=== PATIENT | female | born 2000 | race Hispanic/Latino ===

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

== ENCOUNTER 2024-05-16 17:54 | Emergency (ER) | payer MEDICAID ==
[~2024-05-16] VITALS: Ht 149.9 cm; Wt 68.0 kg
[~2024-05-16 17:54] MED LIST: LEVE-43 PO
[2024-05-16 18:57] LABS: RAPID GROUP A STREP negative (NEGATIVE)
[2024-05-16 18:59] LABS: COVID19 (SARS ANTIGEN RAPID) PRESUMPTIVE NEGATIVE (NEGATIVE); INFLUENZA TYPE A Negative For Type A (NEGATIVE); INFLUENZA TYPE B Negative For Type B (NEGATIVE)
--- NOTE | 2024-05-16 19:11 | ERN ---
General Chief Complaint: Fever Stated Complaint: FEVER Time Seen by MD: 17:58 Time Seen by Midlevel: 17:58 Source: patient History of Present Illness Initial Comments 23-year-old female who presents to the emergency department with mother due to a fever onset today. Mother reports patient has been having allergies and runny nose and is supposed to follow up with spinner concrete pipe specialist. Patient complaining of headache but denies any abdominal pain, chest pain, difficulty breathing, sore throat, dysuria or further associated symptoms. PMHx autism Allergies: Coded Allergies: No Known Drug Allergies (Unverified Allergy, Unknown, 03/30/19) Home Meds Active Scripts Levetiracetam (Keppra) 500 Mg Tablet, 500 MG PO BID for seizures for 30 Days, #60 TAB 1 Refill Prov:ARGELIA HUIZAR MD 09/12/20 Past Medical History Past Medical History: Asthma, Seizure, Other Medical History Other: AUTISM, Past Surgical History: None Social History Social History: Negative Female( History) History: Not Applicable ROS Dictation Constitutional: Positive for fever Negative for chills, and weight loss Eyes: Negative for injury, pain,redness, and discharge ENT: Positive for rhinorrhea Negative for injury,pain or swelling Cardiovascular: Negative for chest pain, palpitations, and edema Respiratory: Negative for shortness of breath, cough, and wheezing, Abdomen/GI: Negative for abdominal pain, nausea, vomiting, diarrhea, and constipation Back: Negative for injury and pain : Negative for painful urination, bleeding or discharge MS/Extremity: Negative for injury and deformity Skin: Negative for rash, and discoloration Neuro: Positive for headache Negative for weakness, numbness, tingling, and seizure Psych: Negative for suicide ideation, homicidal ideation, and hallucinations Physical Exam Physical Exam Dictation General: awake, alert, no acute distress Head/Face: Normocephalic, atraumatic Eyes: normal conjunctiva ENT: oral cavity clear, TMs clear, oral mucosa moist Neck: Supple, normal range of motion Cardiovascular: RRR, normal S1/S2 Respiratory: CTAB, no respiratory distress, no rales or wheezes Abdomen: Soft, non-tender, non-distended, no guarding or rebound. Skin: Warm, dry, normal turgor, no rash MS/Extremity: Pulses equal, no cyanosis, neurovascular intact, FROM Neuro: COAx4, GCS 15, no neurological deficits, normal gait Results Laboratory and Microbiology Lab and Micro Result Laboratory Tests Test 05/16/24 18:13 05/16/24 19:15 Influenza Type A Antigen Negative For Type A Influenza Type B Antigen Negative For Type B SARS-CoV-2 Antigen (Rapid) PRESUMPTIVE NEGATIVE Group A Streptococcus Rapid negative (NEGATIVE) Urine Color LIGHT-YELLOW (YELLOW) Urine Appearance CLEAR (CLEAR) Urine pH 6.5 (5.0-8.0) Urine Specific [place] 1.022 (1.001-1.031) Urine Protein NEGATIVE mg/dL (NEGATIVE) Urine Glucose (UA) NEGATIVE mg/dL (NEGATIVE) Urine Ketones NEGATIVE mg/dL (NEGATIVE) Urine Occult Blood MODERATE (NEGATIVE) H Urine Nitrate NEGATIVE (NEGATIVE) Urine Bilirubin NEGATIVE mg/dL (NEGATIVE) Urine Urobilinogen 0.2 mg/dL (0.2-1.0) Urine Leukocyte Esterase NEGATIVE Fer/uL Urine RBC 11-25 /HPF (0-1) H Urine WBC 0-1 /HPF (0-1) Urine Squamous Epithelial Cells RARE /HPF (0-2) Urine Bacteria None /HPF (None Seen) Labs Reviewed?: Yes MDM MDM: Differential diagnosis: Influenza, UTI, viral illness Rationale: 23-year-old female who presents to the emergency department with mother due to a fever onset today. Mother reports patient has been having allergies and runny nose and is supposed to follow up with spinner concrete pipe specialist. Patient complaining of headache but denies any abdominal pain, chest pain, difficulty breathing, sore throat, dysuria or further associated symptoms. PMHx autism Per physical examination patient is in no acute distress, nonlabored breathing, no crackles or wheezing auscultated, abdomen is soft nontender. Flu, strep, SARs negative. UA negative for urinary tract infection. Mother was educated on findings and diagnosis. Advised to follow up with PCP. Return to the emergency department if any worsening symptoms. Mother verbalized understanding. Patient stable for discharge. There are no social concerns with this patient. I independently interpreted the test that were performed, results were reviewed by me and considered findings on radiology if ordered. Medical management and examination interpretation discussions were had by me with other qualified healthcare professionals as indicated for the patient's c are. ED Course Orders Procedure Category Date Status Time Covid19 (Sars Antigen LAB 2/25/25 Complete Rapid) 18:27 Influenza Type A & B, LAB 05/16/24 Complete Rapid 18:27 Rapid (Group A Strep) LAB 05/16/24 Complete 18:27 Urinalysis LAB 05/16/24 Complete W/Microscopic 18:54 Vital Signs Date Time Temp Pulse Resp B/P (MAP) Pulse Ox O2 Delivery O2 Flow Rate FiO2 05/16/24 19:43 98.8 92 18 128/82 100 Room Air* 0 21 05/16/24 18:13 99.9 108 20 130/86 100 Room Air 0 DX & DISP Disposition: Discharge Departure Impression: Primary Impression: Febrile illness Additional Impression: Viral illness Condition: Stable Additional Instructions: Discharge home. Rest. Follow up with primary care DrAbhinav in 24 hours. Return to the ER for any acute changes or worsening symptoms. If any medications were prescribed take as directed. Okay to continue home medications unless otherwise discussed during your visit in the emergency room today. Patient was also advised to follow-up with primary care physician in 1 to 2 days for continued monitoring. Referrals: WINDY BAKER MD (PCP) I performed the substantive portion of the visit. I have reviewed and personally made and approve the management plan that is documented in the notes by myself or the DOMINIQUE. I acknowledge full responsibility for the patient's man agement plan. DEMOND HANKS May 16, 2024 19:11
[2024-05-16 19:43] VITALS: BP 128/82; PULSE 92; RESP 18; TEMP 98.8; O2SAT 100
[2024-05-16 19:44] LABS: APPEARANCE,URINE CLEAR (CLEAR); BILIRUBIN,URINE NEGATIVE (NEGATIVE); COLOR,URINE LIGHT-YELLOW (YELLOW); GLUCOSE, URINE (UA) NEGATIVE (NEGATIVE); KETONES,URINE NEGATIVE (NEGATIVE); LEUKOCYTE ESTERASE ,URINE NEGATIVE Leu/uL (NEGATIVE); MUCUS,URINE RARE LPF (None Seen); NITRATE,URINE NEGATIVE (NEGATIVE); OCCULT BLOOD,URINE MODERATE (NEGATIVE); PH,URINE 6.5 (5.0-8.0); PROTEIN,URINE NEGATIVE (NEGATIVE); SQUAMOUS EPITHELIAL CELL,UR RARE /HPF (0-2); UROBILINOGEN,URINE 0.2 mg/dL (0.2-1.0); WBC,URINE 0-1 /HPF (0-1)
[2024-05-16] MEDS ORDERED: acetaMINOPHEN 500 MG TABLET PO ONE (20:30)
[2024-05-16] MEDS: acetaMINOPHEN 325 MG TAB PO ONE (21:04)
== END 2024-05-16 21:06 | disposition home or self-care (01) ==
LOC: EDH 17:54
DX: R50.9 Fever, unspecified (principal); B34.9 Viral infection, unspecified; F84.0 Autistic disorder; J45.909 Unspecified asthma, uncomplicated; Z79.899 Other long term (current) drug therapy; Z20.822 Contact with and (suspected) exposure to COVID-19
CPT/HCPCS: 81001; 87426; 87804; 87880; 99283